=== PATIENT | male | born 1965 | race African-American/Black ===

== ENCOUNTER 2023-09-03 12:07 | Emergency (ER) | payer MEDICAID, OTHER, SELFPAY ==
[2023-09-03] MEDS ORDERED: HYDROcodone/Acetaminophen 10/325 mg Tablet ONE (12:40)
[2023-09-03 12:55] LABS: Bilirubin Negative (Negative); Blood, Urine Moderate (Negative); Clarity Slightly Cloudy (Clear); Glucose, Urine (Dipstick) Negative (Negative); Ketone, Urine Trace mg/dL (Negative); Leukocyte Moderate (Negative); Nitrite Positive (Negative); Protein, Urine (Dipstick) 30 mg/dL (Neg-Trace); Urobilinogen 0.2 mg/dL (Less than 2)
[2023-09-03 13:10] LABS: Bacteria/HPF 4+ HPF (None Seen); CAUTI Indications for Culture Dysuria,urgency,freq
[2023-09-03 13:11] LABS: Urine Culture Reflex Yes Yes
[2023-09-03 13:12] LABS: #Basophils 0.1 thou/uL (0.0-0.2); #Lymphocytes 1.4 thou/uL (1.20-3.40); #Monocytes 1.5 thou/uL (0.11-0.59); #Neutrophils 13.5 thou/uL (1.40-6.50); %Basophils 0.5 % (0.0-1.0); %Eosinophils 0.2 % (0.0-10.0); %Lymphocytes 8.7 % (21.0-51.0); %Monocytes 9.2 % (0.0-10.0); %Neutrophils 81.5 % (42.0-75.0); Hematocrit 40.5 % (42.0-52.0); Hemoglobin 13.8 g/dL (14.0-18.0); Mean Corpuscular HGB CONC 34.1 g/dL (32.0-36.0); Mean Corpuscular Hemoglobin 29.5 pg (27.0-31.0); Mean Corpuscular Volume 86.7 fl (78.0-98.0); Mean Platelet Volume 6.7 fL (7.4-10.4); Platelet Count 199 10x3/uL (130-400); RBC Distribution Width 11.9 % (11.5-14.5); Red Blood Cell (RBC) Count 4.68 mill/uL (4.70-6.10); White Blood Cell (WBC) Count 16.6 10x3/uL (4.8-10.8)
[2023-09-03 13:26] LABS: Anion Gap 14 mmol/L (10-20); BUN (Urea Nitrogen) 14 mg/dL (8.4-25.7); Calc. Creatinine Clearance 0 mL/min (70-130); Calcium 8.7 mg/dL (7.8-10.44); Carbon Dioxide 20 mmol/L (22-29); Chloride 109 mmol/L (98-107); Estimated GFR 63; Glucose 109 mg/dL (70-105); Potassium 3.1 mmol/L (3.5-5.1); Sodium 140 mmol/L (136-145)
== END 2023-09-03 13:50 | disposition short-term general hospital (02) ==
LOC: EEVIPCON 12:07 → BURERS 12:07
DX: N50.812 Left testicular pain (principal); N50.811 Right testicular pain; M54.50 Low back pain, unspecified; N50.89 Other specified disorders of the male genital organs; I10 Essential (primary) hypertension; X50.3XXA Overexertion from repetitive movements, initial encounter; Y93.89 Activity, other specified; Y92.096 Garden or yard of other non-institutional residence as the place of occurrence of the external cause; Z79.899 Other long term (current) drug therapy
CPT/HCPCS: 36415; 80048; 81001; 85025; 87077; 87086; 87186; 99284

== ENCOUNTER 2023-09-25 14:02 | Emergency (ER) | payer OTHER ==
[2023-09-25] MEDS ORDERED: Lidocaine 4% Patch TD SCH (14:30)
[2023-09-26] MEDS ORDERED: Transdermal Patch Removal TOP SCH (03:00)
== END 2023-09-25 14:48 | disposition home or self-care (01) ==
LOC: BURERS 14:02
DX: M25.511 Pain in right shoulder (principal); I10 Essential (primary) hypertension; F17.210 Nicotine dependence, cigarettes, uncomplicated; Z79.899 Other long term (current) drug therapy; Z55.6 Problems related to health literacy

== ENCOUNTER 2023-12-10 16:50 | Emergency (ER) | payer OTHER ==
[2023-12-10] MEDS ORDERED: Doxycycline 100 MG CAP ONE (17:19)
[2023-12-10] MEDS ORDERED: cefTRIAXone (ROCEPHIN) 500 MG VIAL ONE (17:20)
[2023-12-10] MEDS ORDERED: Lidocaine 1% PF 5 ML VIAL ONE (17:20)
[2023-12-11 05:37] LABS: Chlam.trachomatis by PCR,Urine Not Detected (NotDetected); GC N.gonorrhoeae PCR,UrineVOID DETECTED (NotDetected)
== END 2023-12-10 17:45 | disposition home or self-care (01) ==
LOC: BURERS 16:50
DX: N34.2 Other urethritis (principal); I10 Essential (primary) hypertension; F17.210 Nicotine dependence, cigarettes, uncomplicated
CPT/HCPCS: 87491; 87591; 96372; 99284; J0696

== ENCOUNTER 2024-01-05 13:12 | Emergency (ER) | payer OTHER ==
[2024-01-05] MEDS ORDERED: Sulfameth/Trimethoprim DS 800-160mg TAB ONE (13:31)
[2024-01-05] MEDS ORDERED: Naproxen 500 MG TAB ONE (13:32)
[2024-01-05] MEDS ORDERED: Lidocaine 1% (PF) 30 ML VIAL ONE (13:32)
== END 2024-01-05 14:06 | disposition home or self-care (01) ==
LOC: BURERS 13:12
DX: L02.31 Cutaneous abscess of buttock (principal); I10 Essential (primary) hypertension; F17.210 Nicotine dependence, cigarettes, uncomplicated
CPT/HCPCS: 10060; 87070; 87077; 87186; 87205